=== PATIENT | male | born 1995 | race Caucasian/White ===

== ENCOUNTER 2016-07-04 09:42 | Emergency (ER) | payer OTHER ==
[2016-07-04 09:54] VITALS: BP 97/61
--- NOTE | 2016-07-04 10:41 | UC ---
Complaint Male HPI - HPI Summary HPI Summary: OCCASIONAL BURNING AND IRRITATION WITH URINATION. NO PENILE DISCHARGE OR LESIONS. NO RECTAL PAIN. HETEROSEXUAL, SAME PARTNER FOR 16 MONTHS, MONOGAMOUS. NO CHANGES IN MEDICATION. NO FEVER. NO BACK PAIN. NO ABDOMINAL PAIN. SIMILAR CONCERN HAPPENED LAST FEBRUARY BUT RESOLVED OVER TIME. - History of Current Complaint Chief Complaint: UCGU Stated Complaint: UTI Time Seen by Provider: 07/04/16 10:05 Hx Obtained From: Patient Onset/Duration: Gradual Onset, Lasting Days, Still Present Timing: Lasting Days Severity Initially: Mild Severity Currently: Moderate Character: Burning Aggravating Factor(s): Voiding Associated Signs And Symptoms: Positive: Dysuria. Negative: Diaphoresis, Back Pain, Fever, Hematuria, Constipation, Blood in Stool, Rectal Pain, Appetite, Nausea, Vomiting(# Of Episodes =), Penile Swelling, Penile Discharge - Risk Factors Testicular Torsion: Negative - Allergies/Home Medications Allergies/Adverse Reactions: Allergies Allergy/AdvReac Type Severity Reaction Status Date / Time No Known Allergies Allergy Verified 07/04/16 09:54 PMH/Surg Hx/FS Hx/Imm Hx Previously Healthy: Yes Endocrine History Of: Denies: Diabetes, Thyroid Disease Cardiovascular History Of: Denies: Cardiac Disorders, Hypertension Respiratory History Of: Denies: COPD, Asthma GI/ History Of: Denies: Ulcer - Surgical History Surgical History: None - Family History Known Family History: Positive: Renal Disease - FAMILY HISTORY OF KIDNEY STONES Negative: Blood Disorder - Social History Occupation: Student Lives: With Family Alcohol Use: Rare Substance Use Type: None Smoking Status (MU): Never Smoked Tobacco Review of Systems Constitutional: Negative Skin: Negative Eyes: Negative ENT: Negative Respiratory: Negative Cardiovascular: Negative Gastrointestinal: Negative Genitourinary: Dysuria Motor: Negative Neurovascular: Negative Musculoskeletal: Negative Neurological: Negative Psychological: Negative All Other Systems Reviewed And Are Negative: Yes Physical Exam Triage Information Reviewed: Yes Appearance: Well-Appearing, No Pain Distress, Well-Nourished, Thin Vital Signs: Initial Vital Signs Temp 98.8 F 07/04/16 09:46 Pulse 72 07/04/16 09:46 Resp 18 07/04/16 09:46 BP 97/61 07/04/16 09:46 Pulse Ox 100 07/04/16 09:46 Vital Signs Reviewed: Yes Eye Exam: Normal ENT Exam: Normal ENT: Positive: Normal ENT inspection, Hearing grossly normal, Pharynx normal, TMs normal Dental Exam: Normal Neck exam: Normal Neck: Positive: Supple, Nontender, No Lymphadenopathy Respiratory Exam: Normal Respiratory: Positive: Chest non-tender, Lungs clear, Normal breath sounds, No respiratory distress, No accessory muscle use Cardiovascular Exam: Normal Cardiovascular: Positive: RRR, No Murmur, Pulses Normal Abdominal Exam: Normal Abdomen Description: Positive: Nontender, No Organomegaly. Negative: CVA Tenderness (R), CVA Tenderness (L) Musculoskeletal Exam: Normal Musculoskeletal: Positive: Strength Intact, ROM Intact Neurological Exam: Normal Psychological Exam: Normal Psychological: Positive: Normal Response To Family Skin Exam: Normal Complaint Male Course/Dx - Differential Dx/Diagnosis Differential Diagnosis/HQI/PQRI: Prostatitis, Pyelonephritis, Ureteral Calculi, Urinary Tract Infection, Other - URETHRITIS Provider Diagnoses: DYSURIA Discharge - Discharge Plan Condition: Stable Disposition: HOME Prescriptions: Sulfamethox/Trimethoprim DS* [Bactrim DS 800/160 TAB*] 1 tab PO BID #20 tab Patient Education Materials: Dysuria (ED) Referrals: [facility] [Outside] Non Staff,Doctor [Primary Care Provider] - Pernell Hill MD [Medical Doctor] -
== END 2016-07-04 10:40 | disposition home or self-care (01) ==
LOC: UCEAST 09:42
DX: R30.0 Dysuria (principal)
CPT/HCPCS: 81003; 87491; 87591; 99212; G0463